=== PATIENT | male | born 1995 | race Caucasian/White ===

== ENCOUNTER 2017-09-22 11:49 | Emergency (ER) | payer MEDICAID ==
[~2017-09-22] VITALS: Ht 190.5 cm; Wt 113.0 kg
[2017-09-22] MEDS ORDERED: FLUORESCEIN SODIUM 1MG/STRIP RIGHTEYE ONE (13:30)
[2017-09-22 14:23] VITALS: BP 139/69
== END 2017-09-22 14:25 | disposition home or self-care (01) ==
LOC: ER 12:41
DX: H57.8 Other specified disorders of eye and adnexa (principal)
CPT/HCPCS: 99283